=== PATIENT | male | born 1980 | race Caucasian/White ===

== ENCOUNTER 2016-07-27 05:23 | Emergency (ER) | payer OTHER ==
[~2016-07-27] VITALS: Ht 185.4 cm; Wt 102.3 kg
[~2016-07-27 05:23] MED LIST: NO HOME MEDICATIONS
[2016-07-27 05:26] VITALS: TEMP 98.1
[2016-07-27] MEDS ORDERED: PERCOCET 325 MG1 TAB PO (05:52)
[2016-07-27] MEDS ORDERED: CLEOCIN HCL300 MG PO (05:52)
[2016-07-27 07:05] VITALS: BP 149/100; PULSE 85
== END 2016-07-27 07:06 | disposition home or self-care (01) ==
LOC: COL.ER 05:23
DX: K04.7 Periapical abscess without sinus (principal); Z88.0 Allergy status to penicillin
CPT/HCPCS: J1170

== ENCOUNTER 2016-07-31 16:31 | Emergency (ER) | payer OTHER ==
[~2016-07-31] VITALS: Ht 185.4 cm; Wt 102.3 kg
[~2016-07-31 16:31] MED LIST changes: +CLEOCIN HCL300 MG PO; +PERCOCET 325 MG1 TAB PO
[2016-07-31 16:35] VITALS: BP 149/99; TEMP 97.7
[2016-07-31] MEDS ORDERED: ULTRAM 50MG TAB50 MG PO (17:33)
[2016-07-31 17:41] VITALS: PULSE 92
== END 2016-07-31 17:42 | disposition home or self-care (01) ==
LOC: COL.ER 16:31
DX: K02.9 Dental caries, unspecified (principal)

== ENCOUNTER 2016-08-15 21:31 | Emergency (ER) | payer OTHER ==
[~2016-08-15] VITALS: Ht 185.4 cm; Wt 102.3 kg
[~2016-08-15 21:31] MED LIST changes: +ULTRAM 50MG TAB50 MG PO
[2016-08-15 21:32] VITALS: BP 157/90; PULSE 92; TEMP 98.8
[2016-08-15] MEDS ORDERED: MOTRIN 800800 MG/TAB PO (21:35)
[2016-08-15] MEDS ORDERED: NORCO 325 MG-51 TAB PO (21:50)
[2016-08-15] MEDS ORDERED: CLEOCIN HC150 MG/CAP PO (21:50)
== END 2016-08-15 22:13 | disposition home or self-care (01) ==
LOC: COL.ER 21:31
DX: G89.18 Other acute postprocedural pain (principal); K04.7 Periapical abscess without sinus; K08.409 Partial loss of teeth, unspecified cause, unspecified class; I10 Essential (primary) hypertension